=== PATIENT | male | born 1940 | race Caucasian/White ===

== ENCOUNTER 2021-07-12 08:30 | Outpatient (RCR) | payer MEDICARE, SELFPAY ==
[2021-06-26 08:44] VITALS: PULSE 75
--- NOTE | 2021-07-04 13:51 | PCCPR ---
Absent-Jers called and left a voicemail stating he was in the ER last night due to increased SOB and she states he has an infection in his lungs. She states he ran out of oxygen and they were supposed to come bring more tanks yesterday but they were in the ER all day. Hopes to return tomorrow.
--- NOTE | 2021-07-16 09:18 | PCCPR ---
Jer's called this morning and said that he wasn't feeling well and will be absent today.
--- NOTE | 2021-07-25 08:57 | PCCPR ---
ON HOLD-Jer is still hospitalized for pneumonia and sepsis. states he is on a breathing machine and they need to do a RANDY but cant until he is off the machine. Explained we will put him on hold and follow up with her in approx 2 weeks to check in if we haven't heard back from her.
--- NOTE | 2021-08-03 11:11 | PCCPR ---
Anant called states Jer had recently . chart closed.
== END 2021-08-03 09:47 | disposition expired ==
LOC: ANHCPREHAB 08:30
DX: Z95.1 Presence of aortocoronary bypass graft (principal)
CPT/HCPCS: 93798